=== PATIENT | female | born 1995 | race African-American/Black ===

== ENCOUNTER 2019-06-28 18:48 | Emergency (ER) | payer OTHER ==
[2019-06-28 19:33] LABS: Absolute Lymphocytes (CBC) 1.9 K/uL (0.7-4.9); Basophils % 0.3 % (0-1.3); Hematocrit 32.2 % (36.0-45.0); Lymphocytes % 11.8 % (15.3-44.8); MPV 8.8 fL (7.6-11.3); RBC Red Blood Cell Count 4.78 M/uL (3.86-4.86)
[2019-06-28 19:34] LABS: Urine Blood 3+ (NEG); Urine Glucose NEGATIVE (NEG); Urine Protein 2+ (NEG); Urine Specific Gravity >1.030 (1.005-1.030); Urine pH 5.5 (5.0-7.0)
[2019-06-28 20:04] LABS: Anisocytosis 1+; BUN Blood Urea Nitrogen 8 mg/dL (7-18); Bicarbonate 23 mmol/L (21-32); Blood Morphology Comment NOTED (NOT SEEN); Glucose Level 97 mg/dL (74-106); HCG, Quantitative 112080 mIU/mL (1-3); Platelet Estimate ADEQ; Poikilocytosis 2+; Potassium 3.4 mmol/L (3.5-5.1); Sodium Level 134 mmol/L (136-145); Urine White Blood Cell Casts OK
[2019-06-28 20:48] LABS: Urine Bacteria <20 /HPF (<20); Urine Culture Reflex Order REFLEXED; Urine Mucus 1+ /HPF (NONE SEEN); Urine RBC 20-50 /HPF (NONE SEEN)
[2019-06-28] MEDS ORDERED: CEFTRIAXONE/SWI 1gm 1 GM/10 ML SYR ONE (21:14)
--- NOTE | 2019-06-28 21:30 | RAD REPORT ---
EXAM DESCRIPTION: US - Transvaginal OB - 06/28/2019 9:22 pm CLINICAL HISTORY: with pelvic pain COMPARISON: None. FINDINGS: The uterus measures 10 x 9 x 8 centimeters. A normal appearing gestational sac is present within the endometrium. Within this is a yolk sac and pole with a crown-rump length 4.6 centim eters. Cardiac activity 162 beats per minute The left ovary is normal in size and echotexture. The right ovary was not seen secondary to overlying bowel gas. An adnexal mass is not noted. No significant free fluid is seen. IMPRESSION: Single live intrauterine with an estimated gestational age 11 weeks 2 days ED D 01/15/2020. If a survey is desired it should be performed in approximately 7 weeks
--- NOTE | 2019-06-28 21:33 | ER ---
Nurse's Notes [facility] Name: Kike Joyce Age: 23 yrs Sex: Female : 1995 Arrival Date: 06/28/2019 Time: 18:53 Bed 20 Private MD: Diagnosis: Threatened ;Urinary tract infection, site not specified Presentation: 06/27 19:00 Chief complaint: Patient states: Bilateral lower abdominal cramping that began this morning, approx 11 weeks gestation, denies bleeding, spotting or discharge. Coronavirus screen: Patient denies a cough. Patient denies shortness of breath or difficulty breathing. Patient denies measured and/or subjective temperature greater than 100.4F prior to today's visit. Patient denies travel on a cruise ship or to a country the [facility] currently lists as an affected area. Patient denies contact with known and/or suspected case of COVID-19. Ebola Screen: No symptoms or risks identified at this time. Initial Sepsis Screen: Does the patient meet any 2 criteria? No. Patient's initial sepsis screen is negative. Does the patient have a suspected source of infection? No. Patient's initial sepsis screen is negative. Risk Assessment: Do you want to hurt yourself or someone else? Patient reports no desire to harm self or others. Onset of symptoms was June 28, 2019. 19:00 Method Of Arrival: Ambulatory 19:00 Acuity: FRANSISCO 3 ph Historical: - Allergies: 19:02 No Known Allergies; ph - PMHx: 19:02 Asthma; ph - PSHx: 19:02 None; ph - Immunization history:: Adult Immunizations up to date. - Social history:: Smoking status: Patient denies any tobacco usage or history of. Screenin:10 Abuse screen: Denies threats or abuse. Nutritional screening: No deficits noted. jb4 Tuberculosis screening: No symptoms or risk factors identified. Fall Risk None identified. Assessment: 19:10 General: Appears in no apparent distress. uncomfortable, Behavior is cooperative, jb4 anxious, crying. Pain: Complains of pain in abdomen Pain does not radiate. Pain currently is 7 out of 10 on a pain scale. Quality of pain is described as crampy, Is intermittent. Neuro: Level of Consciousness is awake, alert, obeys commands, Oriented to person, place, time, situation. Cardiovascular: Patient's skin is warm and dry. Respiratory: Airway is patent Respiratory effort is even, unlabored, Respiratory pattern is regular, symmetrical. GI: Abdomen is flat, non-distended, Bowel sounds present X 4 quads. Abd is soft and non tender X 4 quads. : Urine is blood tinged, Reports vaginal bleeding that is. EENT: No signs and/or symptoms were reported regarding the EENT system. Derm: Skin is intact, Skin is pink, warm \T\ dry. Musculoskeletal: Circulation, motion, and sensation intact. Range of motion: intact in all extremities. 20:45 Reassessment: Patient appears in no apparent distress at this time. Patient and/or jb4 family updated on plan of care and expected duration. Pain level reassessed. Patient is alert, oriented x 3, equal unlabored respirations, skin warm/dry/pink. Patient denies pain at this time. 21:54 Reassessment: Patient appears in no apparent distress at this time. Patient and/or jb4 family updated on plan of care and expected duration. Pain level reassessed. Patient is alert, oriented x 3, equal unlabored respirations, skin warm/dry/pink. Vital Signs: 19:00 BP 118 / 57; Pulse 78; Resp 18; Temp 98.6; Pulse Ox 100% on R/A; Weight 72.57 kg; ph Height 5 ft. 2 in. (157.48 cm); Pain 7/10; 20:30 BP 123 / 66; Pulse 66; Resp 16; Pulse Ox 100% on R/A; Pain 0/10; jb4 21:57 BP 109 / 65; Pulse 84; Resp 16; Pulse Ox 98% on R/A; jb4 19:00 Body Mass Index 29.26 (72.57 kg, 157.48 cm) ph ED Course: 18:53 Patient arrived in ED. mr 19:02 Triage completed. ph 19:02 Arm band placed on Patient placed in an exam room. ph 19:07 Chato Landis NP is PHCP. pm1 19:10 Zully Fuentes MD is Attending Physician. pm1 19:10 Patient has correct armband on for positive identification. Bed in low position. Call jb4 light in reach. Side rails up X 1. Pulse ox on. NIBP on. 19:12 Brandon Munroe, RN is Primary Nurse. jb4 19:23 Inserted saline lock: 20 gauge in right antecubital area, using aseptic technique. mt Blood collected. 21:22 Transvaginal Ob In Process Unspecified. EDMS 21:58 No provider procedures requiring assistance completed. IV discontinued, intact, jb4 bleeding controlled, No redness/swelling at site. Pressure dressing applied. Administered Medications: 21:25 Drug: Rocephin 1 grams Route: IV; Rate: calculated rate; Site: right antecubital; jb4 21:27 Follow up: Response: No adverse reaction; IV Status: Completed infusion; IV Intake: [id number] Intake: 21:27 IV: 10ml; Total: 10ml. jb4 Outcome: 21:33 Discharge ordered by MD. pm1 21:58 Discharged to home ambulatory, with significant other. jb4 21:58 Condition: stable 21:58 Discharge instructions given to patient, Instructed on discharge instructions, follow up and referral plans. no driving heavy equipment, Demonstrated understanding of instructions, follow-up care, medications, Prescriptions given X 1. 22:00 Patient left the ED. jb4 Signatures: Dispatcher [employer] [facility] Yolanda Kulkarni mr Manda Diego RN RN ph Chato Landis, CHILDREN'S MINISTER CHILDREN'S MINISTER pm1 Brandon Munroe, RN RN Sarita Levi mt
--- NOTE | 2019-06-28 21:33 | EDPHYS ---
Physician Documentation [facility] Name: Kike Joyce Age: 23 yrs Sex: Female : 1995 Arrival Date: 06/28/2019 Time: 18:53 Bed 20 Private MD: ED Physician Zully Fuentes HPI: 06/27 19:13 This 23 yrs old Black Female presents to ER via Ambulatory with complaints of Abdominal pm1 Cramping, 11 wks . Historical: - Allergies: 19:02 No Known Allergies; ph - PMHx: 19:02 Asthma; ph - PSHx: 19:02 None; ph - Immunization history:: Adult Immunizations up to date. - Social history:: Smoking status: Patient denies any tobacco usage or history of. ROS: 19:26 Constitutional: Negative for fever, chills, and weight loss, Neck: Negative for injury, pm1 pain, and swelling, Cardiovascular: Negative for chest pain, palpitations, and edema, Respiratory: Negative for shortness of breath, cough, wheezing, and pleuritic chest pain. 19:26 Back: Negative for injury and pain. 19:26 MS/Extremity: Negative for injury and deformity, Skin: Negative for injury, rash, and discoloration. 19:26 Neuro: Negative for headache, weakness, numbness, tingling, and seizure. 19:26 Abdomen/GI: Positive for abdominal cramps, Negative for nausea, vomiting, and diarrhea. 19:26 : Positive for vaginal bleeding, Negative for flank pain, burning with urination, difficulty urinating. 19:26 All other systems are negative. Exam: 19:26 Constitutional: This is a well developed, well nourished patient who is awake, alert, pm1 and in no acute distress. Head/Face: Normocephalic, atraumatic. Chest/axilla: Normal chest wall appearance and motion. Nontender with no deformity. No lesions are appreciated. 19:26 Abdomen/GI: Soft, non-tender, with normal bowel sounds. No distension or tympany. No guarding or rebound. No evidence of tenderness throughout. Back: No spinal tenderness. No costovertebral tenderness. Full range of motion. Skin: Warm, dry with normal turgor. Normal color with no rashes, no lesions, and no evidence of cellulitis. MS/ Extremity: Pulses equal, no cyanosis. Neurovascular intact. Full, normal range of motion. 19:26 Cardiovascular: Exam negative for acute changes, Rate: normal, Rhythm: regular, Pulses: no pulse deficits are appreciated, Edema: is not appreciated. 19:26 Respiratory: Exam negative for acute changes, respiratory distress, shortness of breath. 19:26 Neuro: Exam negative for acute changes, Orientation: is normal, Motor: is normal, moves all fours. Vital Signs: 19:00 BP 118 / 57; Pulse 78; Resp 18; Temp 98.6; Pulse Ox 100% on R/A; Weight 72.57 kg; ph Height 5 ft. 2 in. (157.48 cm); Pain 7/10; 20:30 BP 123 / 66; Pulse 66; Resp 16; Pulse Ox 100% on R/A; Pain 0/10; jb4 21:57 BP 109 / 65; Pulse 84; Resp 16; Pulse Ox 98% on R/A; jb4 19:00 Body Mass Index 29.26 (72.57 kg, 157.48 cm) ph MDM: 19:07 Patient medically screened. pm1 21:02 Data reviewed: vital signs. Data interpreted: Pulse oximetry: on room air is 100 %. pm1 Interpretation: normal. 21:33 Counseling: I had a detailed discussion with the patient and/or guardian regarding: the pm1 historical points, exam findings, and any diagnostic results supporting the discharge/admit diagnosis, lab results, radiology results, the need for outpatient follow up, to return to the emergency department if symptoms worsen or persist or if there are any questions or concerns that arise at home. 06/27 19:09 Order name: Quantitative Hcg; Complete Time: 20:05 pm1 06/27 19:09 Order name: Abo/rh Typing; Complete Time: 20:11 pm1 06/27 19:09 Order name: Basic Metabolic Panel; Complete Time: 20:05 pm1 06/27 19:09 Order name: CBC with Diff; Complete Time: 20:05 pm1 06/27 19:29 Order name: Urine Dipstick--Ancillary (enter results); Complete Time: 19:36 mw2 06/27 19:29 Order name: Urine --Ancillary (enter results); Complete Time: 19:36 mw2 06/27 19:09 Order name: Urine Test (obtain specimen); Complete Time: 19:35 pm1 06/27 19:09 Order name: IV Saline Lock; Complete Time: 19:23 pm1 06/27 19:09 Order name: Labs collected and sent; Complete Time: 19:23 pm1 06/27 19:09 Order name: US Transvaginal Ob; Complete Time: 21:32 pm1 06/27 19:39 Order name: CBC Smear Scan; Complete Time: 20:05 [facility] 06/27 20:11 Order name: Urine Microscopic Only; Complete Time: 20:49 pm1 06/27 20:49 Order name: Urine Culture [facility] 06/27 19:09 Order name: NPO; Complete Time: 19:13 pm1 06/27 19:09 Order name: Urine Dipstick-Ancillary (obtain specimen); Complete Time: 19:35 pm1 Administered Medications: 21:25 Drug: Rocephin 1 grams Route: IV; Rate: calculated rate; Site: right antecubital; [facility] [place] 21:27 Follow up: Response: No adverse reaction; IV Status: Completed infusion; IV Intake: [id number] Disposition: 06/28 19:49 Co-signature as Attending Physician, Zully Fuentes MD. ma2 Disposition: 06/28/19 21:33 Discharged to Home. Impression: Threatened , Urinary tract infection, site not specified. - Condition is Stable. - Discharge Instructions: Threatened Miscarriage, and Urinary Tract Infection, Pelvic Rest. - Prescriptions for Macrobid 100 mg Oral Capsule - take 1 capsule by ORAL route every 12 hours for 10 days; 20 capsule. - Medication Reconciliation Form, Thank You Letter, Antibiotic Education, Prescription Opioid Use, Work release form form. - Follow up: Emergency Department; When: As needed; Reason: Worsening of condition. Follow up: Private Physician; When: 2 - 3 days; Reason: Recheck today's complaints, Continuance of care, Re-evaluation by your physician. - Problem is new. - Symptoms have improved. Signatures: Dispatcher [employer] [facility] Manda Diego RN RN Chato Bello, POLYSOMNOGRAPHY TECHNOLOGIST POLYSOMNOGRAPHY TECHNOLOGIST pm1 Brandon Munroe RN RN jb4 Alzahri, Mohammad, MD MD ma2 Corrections: (The following items were deleted from the chart) 06/27 22:00 21:33 06/28/2019 21:33 Discharged to Home. Impression: Threatened ; Urinary jb4 tract infection, site not specified. Condition is Stable. Discharge Instructions: Threatened Miscarriage, and Urinary Tract Infection, Pelvic Rest. Prescriptions for Macrobid 100 mg Oral Capsule - take 1 capsule by ORAL route every 12 hours for 10 days; 20 capsule. and Forms are Medication Reconciliation Form, Thank You Letter, Antibiotic Education, Prescription Opioid Use. Follow up: Emergency Department; When: As needed; Reason: Worsening of condition. Follow up: Private Physician; When: 2 - 3 days; Reason: Recheck today's complaints, Continuance of care, Re-evaluation by your physician. Problem is new. Symptoms have improved. pm1
[2019-06-28 22:08] VITALS: TEMP 98.6
[2019-06-28 22:10] VITALS: BP 109/65; O2SAT 98
== END 2019-06-28 22:00 | disposition home or self-care (01) ==
LOC: ER 18:48
DX: O20.0 Threatened abortion (principal); O23.41 Unspecified infection of urinary tract in pregnancy, first trimester; Z3A.11 11 weeks gestation of pregnancy
CPT/HCPCS: 87088; 85025; 87086; 80048; 36415; 86900; 81025; 86901; 84702; 76817; J0696; 81003; 81015; 96374; 99284